=== PATIENT | male | born 1960 | race Caucasian/White ===

== ENCOUNTER → 2021-02-09 | Outpatient (REF) | payer BC, MEDICAID, SELFPAY ==
[2021-02-09 12:52] LABS: BASO # 0.1 10^3/uL (0.0-0.2); BASO % 1.2 % (0.0-1.0); EOS # 0.4 10^3/uL (0.0-0.5); EOS % 3.5 % (0.0-3.0); HEMATOCRIT 51.6 % (42.0-52.0); LYMPH # 2.5 10^3/uL (1.5-5.0); LYMPH % 23.5 % (24.0-44.0); MEAN CORPUSCULAR HEMOGLOBIN 29.1 pg (27.0-33.0); MEAN CORPUSCULAR HGB CONC 32.9 g/dl (32.0-36.5); MEAN CORPUSCULAR VOLUME 88.4 fl (80.0-96.0); MONO # 0.7 10^3/uL (0.0-0.8); MONO % 6.3 % (2.0-8.0); NEUTROPHILS # 6.8 10^3/uL (1.5-8.5); NEUTROPHILS % 65.2 % (36.0-66.0); PLATELET COUNT, AUTOMATED 328 10^3/uL (150-450); RED BLOOD COUNT 5.84 10^6/uL (4.30-6.10); WHITE BLOOD COUNT 10.4 10^3/uL (4.0-10.0)
[2021-02-09 13:39] LABS: ALBUMIN 3.8 GM/DL (3.2-5.2); ALT/SGPT 30 U/L (12-78); BILIRUBIN,TOTAL 0.4 MG/DL (0.2-1.0); BLOOD UREA NITROGEN 13 MG/DL (7-18); CALCIUM LEVEL 9.5 MG/DL (8.5-10.1); CARBON DIOXIDE LEVEL 31 MEQ/L (21-32); CHLORIDE LEVEL 107 MEQ/L (98-107); CREATININE FOR GFR 1.08 MG/DL (0.70-1.30); GLOMERULAR FILTRATION RATE > 60.0 (>56); GLUCOSE, FASTING 93 MG/DL (70-100); SODIUM LEVEL 140 MEQ/L (136-145); TOTAL PROTEIN 6.9 GM/DL (6.4-8.2)
== END ==
LOC: M SFHCADAM 12:38
PROVIDERS: ATTEND Family Medicine
DX: I10 Essential (primary) hypertension (principal)

== ENCOUNTER → 2021-03-12 | Outpatient (REF) | payer SELFPAY | LOC: M LAB REF 19:04 | PROVIDERS: ATTEND Dermatology | DX: C44.311 Basal cell carcinoma of skin of nose (principal) ==

== ENCOUNTER → 2021-04-10 | Outpatient (REF) | payer MEDICAID | LOC: M SFHCADAM 08:21 | PROVIDERS: ATTEND Family Medicine | DX: Z00.00 Encounter for general adult medical examination without abnormal findings (principal); I10 Essential (primary) hypertension; Z53.9 Procedure and treatment not carried out, unspecified reason ==

== ENCOUNTER → 2021-04-16 | Outpatient (REF) | payer MEDICAID ==
[2021-04-16 17:48] LABS: BASO # 0.1 10^3/uL (0.0-0.2); BASO % 1.1 % (0.0-1.0); EOS # 0.2 10^3/uL (0.0-0.5); EOS % 1.8 % (0.0-3.0); HEMATOCRIT 46.8 % (42.0-52.0); HEMOGLOBIN 15.3 g/dl (13.5-17.5); LYMPH # 2.9 10^3/uL (1.5-5.0); LYMPH % 22.9 % (24.0-44.0); MEAN CORPUSCULAR HEMOGLOBIN 28.7 pg (27.0-33.0); MEAN CORPUSCULAR HGB CONC 32.7 g/dl (32.0-36.5); MEAN CORPUSCULAR VOLUME 87.6 fl (80.0-96.0); MONO # 0.7 10^3/uL (0.0-0.8); MONO % 5.7 % (2.0-8.0); NEUTROPHILS # 8.7 10^3/uL (1.5-8.5); NEUTROPHILS % 68.2 % (36.0-66.0); PLATELET COUNT, AUTOMATED 391 10^3/uL (150-450); RED BLOOD COUNT 5.34 10^6/uL (4.30-6.10); WHITE BLOOD COUNT 12.7 10^3/uL (4.0-10.0)
[2021-04-16 18:03] LABS: HEMOGLOBIN A1c 5.4 %
[2021-04-16 18:45] LABS: ALBUMIN 3.6 GM/DL (3.2-5.2); ALT/SGPT 22 U/L (12-78); BILIRUBIN,TOTAL 0.6 MG/DL (0.2-1.0); BLOOD UREA NITROGEN 13 MG/DL (7-18); CALCIUM LEVEL 9.5 MG/DL (8.5-10.1); CARBON DIOXIDE LEVEL 33 MEQ/L (21-32); CHLORIDE LEVEL 105 MEQ/L (98-107); CHOLESTEROL LEVEL 203 MG/DL (<200); CHOLESTEROL RISK RATIO 4.833 (<5); CREATININE FOR GFR 1.18 MG/DL (0.70-1.30); GLOMERULAR FILTRATION RATE > 60.0 (>56); GLUCOSE, FASTING 91 MG/DL (70-100); HDL CHOLESTEROL 42 MG/DL (>40); LDL CHOLESTEROL 142 MG/DL (<100); NON-HDL-C 161 MG/DL; POTASSIUM SERUM 5.5 MEQ/L (3.5-5.1); SODIUM LEVEL 139 MEQ/L (136-145); TRIGLYCERIDES LEVEL 96 MG/DL (<150)
== END ==
LOC: M SFHCADAM 13:50
PROVIDERS: ATTEND Family Medicine
DX: Z00.00 Encounter for general adult medical examination without abnormal findings (principal); I10 Essential (primary) hypertension

== ENCOUNTER → 2021-04-23 | Outpatient (CLI) | payer MEDICAID | LOC: M PLAIMG 14:05 | PROVIDERS: ATTEND Dermatology | DX: Z53.9 Procedure and treatment not carried out, unspecified reason (principal); C44.311 Basal cell carcinoma of skin of nose ==

== ENCOUNTER → 2021-06-01 | Outpatient (CLI) | payer MEDICAID, OTHER ==
[~2021-06-01] MED LIST: ISOVUE-370 76% 100ML VIAL ONE
--- NOTE | 2021-06-01 22:11 | REPVR ---
PROCEDURE INFORMATION: Exam: CT Head With Contrast Exam date and time: 06/01/2021 11:20 AM Age: 61 years old Clinical indication: Condition or disease; History of cancer (specify primary cancer site): ; Primary cancer: Basal-nose; Additional info: Basal cell CA of nose TECHNIQUE: Imaging protocol: Computed tomography of the head with intravenous contrast. Radiation optimization: All CT scans at this facility use at least one of these dose optimization techniques: automated exposure control; mA and/or kV adjustment per patient size (includes targeted exams where dose is matched to clinical indication); or iterative reconstruction. Contrast material: ISOVUE 370; Contrast volume: 100 ml; Contrast route: INTRAVENOUS (IV); COMPARISON: No relevant prior studies available. FINDINGS: Brain: No intracranial hemorrhage or extra-axial fluid collection. No evidence of mass effect or midline shift. Duff-white matter differentiation is intact. No abnormal intracranial enhancement. Cerebral ventricles: Unremarkable. No ventriculomegaly. Bones/joints: No acute osseus lesion or fracture. Paranasal sinuses: Visualized sinuses are unremarkable. No fluid levels. Mastoid air cells: Unremarkable. Soft tissues: Minimal soft tissue thickening of the left anterior aspect of the nose. Scalp soft tissues are unremarkable. IMPRESSION: 1. No acute intracranial pathology. 2. 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 Electronically signed by: Brennen Pedraza On 06/01/2021 22:10:30 PM
== END ==
LOC: M PLAIMG 10:50
PROVIDERS: ATTEND Dermatology
DX: C44.311 Basal cell carcinoma of skin of nose (principal)

== ENCOUNTER → 2021-06-11 | Outpatient (REF) | payer OTHER, MEDICAID ==
[2021-06-11 17:52] LABS: BASO # 0.1 10^3/uL (0.0-0.2); EOS # 0.2 10^3/uL (0.0-0.5); EOS % 1.9 % (0.0-3.0); HEMATOCRIT 43.5 % (42.0-52.0); HEMOGLOBIN 14.3 g/dl (13.5-17.5); LYMPH # 2.8 10^3/uL (1.5-5.0); LYMPH % 22.1 % (24.0-44.0); MEAN CORPUSCULAR HEMOGLOBIN 28.9 pg (27.0-33.0); MEAN CORPUSCULAR HGB CONC 32.9 g/dl (32.0-36.5); MEAN CORPUSCULAR VOLUME 87.9 fl (80.0-96.0); MONO # 0.6 10^3/uL (0.0-0.8); MONO % 4.8 % (2.0-8.0); NEUTROPHILS % 69.8 % (36.0-66.0); PLATELET COUNT, AUTOMATED 386 10^3/uL (150-450); RED BLOOD COUNT 4.95 10^6/uL (4.30-6.10); WHITE BLOOD COUNT 12.9 10^3/uL (4.0-10.0)
[2021-06-11 21:22] LABS: ALBUMIN 3.7 GM/DL (3.2-5.2); ALT/SGPT 34 U/L (12-78); BILIRUBIN,TOTAL 0.3 MG/DL (0.2-1.0); BLOOD UREA NITROGEN 15 MG/DL (7-18); CALCIUM LEVEL 9.8 MG/DL (8.5-10.1); CARBON DIOXIDE LEVEL 27 MEQ/L (21-32); CHLORIDE LEVEL 108 MEQ/L (98-107); CREATININE FOR GFR 0.96 MG/DL (0.70-1.30); GLOMERULAR FILTRATION RATE > 60.0 (>56); GLUCOSE, FASTING 101 MG/DL (70-100); POTASSIUM SERUM 4.3 MEQ/L (3.5-5.1); SODIUM LEVEL 140 MEQ/L (136-145); TOTAL PROTEIN 7.2 GM/DL (6.4-8.2)
[2021-06-11 22:22] LABS: HIV 1&2 SCREEN CENTAUR NEGATIVE (NEGATIVE)
== END ==
LOC: M SFHCADAM 13:41
PROVIDERS: ATTEND Family Medicine
DX: Z00.00 Encounter for general adult medical examination without abnormal findings (principal); Z11.4 Encounter for screening for human immunodeficiency virus [HIV]; Z11.59 Encounter for screening for other viral diseases
CPT/HCPCS: 80053; 85025; 87389; G0472

== ENCOUNTER → 2021-11-17 | Outpatient (CLI) | payer MEDICAID, OTHER ==
[~2021-11-17] MED LIST changes: +AMLO1TAB25 PO; -ISOVUE-370 76% 100ML VIAL ONE; +LISI40TA4 PO
== END ==
LOC: M LABSMTC 09:56
PROVIDERS: ATTEND Anesthesiology
DX: Z01.812 Encounter for preprocedural laboratory examination (principal); Z11.52 Encounter for screening for COVID-19

== ENCOUNTER 2021-11-22 12:09 | Day surgery (SDC) | payer OTHER ==
[~2021-11-22] VITALS: Ht 170.2 cm; Wt 56.9 kg
[~2021-11-22 12:09] MED LIST changes: +HYDROMORPHONE HCL 0.5 MG/ 0.5 ML SYRINGE (J1170 PER 1) IV PRN; +INSULIN LISPRO (NovoLOG) PER UNIT SC PRN; +LIDOCAINE W/EPINEPHRINE 1% 20ML VIAL As Ordered ONE; +LR 1,000 ML IV SCH; +METOCLOPRAMIDE INJ 10MG/2ML VIAL (J2765 PER 1) IV PRN; +ONDANSETRON 4MG/2ML VIAL IV PRN; +fentaNYL 100 MCG/2 ML INJECTION IV PRN; +oxyCODONE 5MG TAB PO PRN
[2021-11-22] MEDS ORDERED: INSULIN LISPRO (NovoLOG) PER UNIT SC PRN ×2 (12:20→15:05)
[2021-11-22] MEDS ORDERED: LR 1,000 ML IV SCH ×2 (12:20→15:05)
[2021-11-22] MEDS ORDERED: ONDANSETRON 4MG/2ML VIAL As Ordered ONE (13:20)
[2021-11-22] MEDS ORDERED: dexameTHASONE 4 MG/ML 1ML VIAL (J1100 PER 1MG) As Ordered ONE (13:20)
[2021-11-22] MEDS ORDERED: MIDAZOLAM INJ 2MG/2ML VIAL (J2250 PER 1MG) As Ordered ONE (13:20)
[2021-11-22] MEDS ORDERED: ROCURONIUM BROMIDE 50 MG/5 ML VIAL As Ordered ONE (13:20)
[2021-11-22] MEDS ORDERED: LIDOCAINE 2% 100MG/5ML SDV (FOR ANES.) As Ordered ONE (13:20)
[2021-11-22] MEDS ORDERED: propofoL 200 MG/20 ML VIAL As Ordered ONE (13:20)
[2021-11-22] MEDS ORDERED: fentaNYL 250 MCG/5 ML INJECTION As Ordered ONE (13:20)
[2021-11-22] MEDS ORDERED: SUGAMMADEX SODIUM 500 MG/5 ML VIAL (BRIDION) As Ordered ONE (13:20)
[2021-11-22] MEDS ORDERED: ePHEDrine SULFATE 25 MG/5 ML(5MG/ML) SYRINGE As Ordered ONE (13:21)
[2021-11-22] MEDS ORDERED: PHENYLephrine 500MCG 5ML (100MCG/ML) SYRINGE As Ordered ONE ×2 (13:25→15:01)
[2021-11-22] MEDS ORDERED: ACETAMINOPHEN 1000MG 100ML IV BTL (OFIRMEV) (J0131 PER 10MG) As Ordered ONE (13:33)
[2021-11-22] MEDS ORDERED: EPINEPHrine 1MG/ML INJ 30ML MD-VIAL As Ordered ONE (13:49)
[2021-11-22] MEDS ORDERED: METHYLENE BLUE 0.5% (5MG/ML) 10 ML AMP (PROVAYBLUE) As Ordered ONE (13:54)
[2021-11-22] MEDS ORDERED: BACITRACIN OINTMENT 30GM TUBE As Ordered ONE (14:49)
[2021-11-22] MEDS ORDERED: fentaNYL 100 MCG/2 ML INJECTION IV PRN (15:05)
[2021-11-22] MEDS ORDERED: METOCLOPRAMIDE INJ 10MG/2ML VIAL (J2765 PER 1) IV PRN (15:05)
[2021-11-22] MEDS ORDERED: HYDROMORPHONE HCL 0.5 MG/ 0.5 ML SYRINGE (J1170 PER 1) IV PRN (15:05)
[2021-11-22] MEDS ORDERED: ONDANSETRON 4MG/2ML VIAL IV PRN (15:05)
[2021-11-22] MEDS ORDERED: oxyCODONE 5MG TAB PO PRN (15:05)
[2021-11-22 15:53] VITALS: BP 109/68
[2021-11-30] MEDS ORDERED: SIMV40TA20 PO (10:13)
== END 2021-11-22 16:34 | disposition home or self-care (01) ==
LOC: M SDC 12:09
PROVIDERS: ATTEND Otolaryngology
DX: C44.311 Basal cell carcinoma of skin of nose (principal); I10 Essential (primary) hypertension; Z79.899 Other long term (current) drug therapy; F17.210 Nicotine dependence, cigarettes, uncomplicated
CPT/HCPCS: 11644; 15731; 88304; 88311; J0131; J0171; J1100; J2250; J2370; J2405; J3010; Q9968

== ENCOUNTER → 2021-11-30 | Outpatient (CLI) | payer OTHER ==
[~2021-11-30] MED LIST changes: -HYDROMORPHONE HCL 0.5 MG/ 0.5 ML SYRINGE (J1170 PER 1) IV PRN; -INSULIN LISPRO (NovoLOG) PER UNIT SC PRN; -LIDOCAINE W/EPINEPHRINE 1% 20ML VIAL As Ordered ONE; -LR 1,000 ML IV SCH; -METOCLOPRAMIDE INJ 10MG/2ML VIAL (J2765 PER 1) IV PRN; -ONDANSETRON 4MG/2ML VIAL IV PRN; +SIMV40TA20 PO; -fentaNYL 100 MCG/2 ML INJECTION IV PRN; -oxyCODONE 5MG TAB PO PRN
== END ==
LOC: M ONCR 09:45
PROVIDERS: ATTEND General Practice
DX: C44.311 Basal cell carcinoma of skin of nose (principal); F17.210 Nicotine dependence, cigarettes, uncomplicated; Z92.21 Personal history of antineoplastic chemotherapy

== ENCOUNTER → 2021-12-16 | Outpatient (CLI) | payer OTHER | LOC: M LABSMTC 12:09 | PROVIDERS: ATTEND Anesthesiology | DX: Z01.818 Encounter for other preprocedural examination (principal); Z11.52 Encounter for screening for COVID-19 ==

== ENCOUNTER 2021-12-20 06:41 | Day surgery (SDC) | payer OTHER ==
[~2021-12-20] VITALS: Ht 170.2 cm; Wt 56.7 kg
[2021-12-20] MEDS ORDERED: LR 1,000 ML IV SCH ×2 (07:35→10:00)
[2021-12-20] MEDS ORDERED: EPINEPHrine INJ 1 MG/ML 1ML AMP As Ordered ONE (08:04)
[2021-12-20] MEDS ORDERED: BACITRACIN OINTMENT 30GM TUBE As Ordered ONE (08:04)
[2021-12-20] MEDS ORDERED: LIDOCAINE W/EPINEPHRINE 1% 20ML VIAL As Ordered ONE (08:04)
[2021-12-20] MEDS ORDERED: fentaNYL 100 MCG/2 ML INJECTION As Ordered ONE ×2 (08:38→09:41)
[2021-12-20] MEDS ORDERED: ROCURONIUM BROMIDE 50 MG/5 ML VIAL As Ordered ONE (08:38)
[2021-12-20] MEDS ORDERED: dexameTHASONE 4 MG/ML 1ML VIAL (J1100 PER 1MG) As Ordered ONE (08:38)
[2021-12-20] MEDS ORDERED: MIDAZOLAM INJ 2MG/2ML VIAL (J2250 PER 1MG) As Ordered ONE (08:38)
[2021-12-20] MEDS ORDERED: LIDOCAINE 2% 100MG/5ML SDV (FOR ANES.) As Ordered ONE (08:38)
[2021-12-20] MEDS ORDERED: SUCCINYLCHOLINE 100 MG/5 ML SYRINGE (J0330) As Ordered ONE (08:38)
[2021-12-20] MEDS ORDERED: ePHEDrine SULFATE 25 MG/5 ML(5MG/ML) SYRINGE As Ordered ONE ×2 (08:38→09:38)
[2021-12-20] MEDS ORDERED: propofoL 200 MG/20 ML VIAL As Ordered ONE (08:38)
[2021-12-20] MEDS ORDERED: PHENYLephrine 500MCG 5ML (100MCG/ML) SYRINGE As Ordered ONE (08:38)
[2021-12-20] MEDS ORDERED: ONDANSETRON 4MG/2ML VIAL As Ordered ONE (08:43)
[2021-12-20] MEDS ORDERED: SUGAMMADEX SODIUM 500 MG/5 ML VIAL (BRIDION) As Ordered ONE (08:47)
[2021-12-20] MEDS ORDERED: ACETAMINOPHEN 1000MG 100ML IV BTL (OFIRMEV) (J0131 PER 10MG) As Ordered ONE (08:47)
[2021-12-20] MEDS ORDERED: oxyCODONE 5MG TAB PO PRN (10:00)
[2021-12-20] MEDS ORDERED: fentaNYL 100 MCG/2 ML INJECTION IV PRN (10:00)
[2021-12-20] MEDS ORDERED: ONDANSETRON 4MG/2ML VIAL IV PRN (10:00)
[2021-12-20] MEDS ORDERED: ALBUTEROL SULFATE 2.5 MG/0.5 ML INH NEB SOLN INH ONE (10:00)
[2021-12-20] MEDS ORDERED: HYDROMORPHONE HCL 0.5 MG/ 0.5 ML SYRINGE (J1170 PER 1) IV PRN (10:00)
[2021-12-20 11:29] VITALS: BP 118/59
== END 2021-12-20 11:41 | disposition home or self-care (01) ==
LOC: M SDC 06:41
PROVIDERS: ATTEND Otolaryngology
DX: C44.311 Basal cell carcinoma of skin of nose (principal); I10 Essential (primary) hypertension; F17.210 Nicotine dependence, cigarettes, uncomplicated; Z79.899 Other long term (current) drug therapy
CPT/HCPCS: 14040; 15630; 93005; J0131; J0330; J1100; J2250; J2370; J2405; J3010

== ENCOUNTER 2022-01-25 12:11 | Outpatient (RCR) | payer OTHER | END 2022-01-27 | LOC: M ONCR 12:11 | PROVIDERS: ATTEND General Practice | DX: C44.311 Basal cell carcinoma of skin of nose (principal) ==

== ENCOUNTER 2022-02-21 11:53 | Outpatient (RCR) | payer OTHER | END 2022-02-27 | LOC: M ONCR 11:53 | PROVIDERS: ATTEND General Practice | DX: C44.311 Basal cell carcinoma of skin of nose (principal) ==

== ENCOUNTER → 2022-03-27 | Outpatient (CLI) | payer OTHER | LOC: M ONCR 13:17 | PROVIDERS: ATTEND General Practice | DX: Z08 Encounter for follow-up examination after completed treatment for malignant neoplasm (principal); H04.211 Epiphora due to excess lacrimation, right lacrimal gland; Z92.3 Personal history of irradiation ==

== ENCOUNTER → 2022-09-12 | Outpatient (CLI) | payer OTHER | LOC: M ONCR 09:36 | PROVIDERS: ATTEND General Practice | DX: Z08 Encounter for follow-up examination after completed treatment for malignant neoplasm (principal); Z85.828 Personal history of other malignant neoplasm of skin; Z92.3 Personal history of irradiation; Z79.899 Other long term (current) drug therapy; F17.210 Nicotine dependence, cigarettes, uncomplicated ==